=== PATIENT | male | born 1965 | race Caucasian/White ===

== ENCOUNTER → 2017-07-08 12:50 | Outpatient (CLI) | payer BC, SELFPAY ==
[2017-07-08 14:05] LABS: Hemoglobin A1C 9.1 % (0.0-7.0)
[2017-07-08 16:08] LABS: Alanine Aminotransferase 40 U/L (12-78); Albumin Level 3.6 gm/dL (3.4-5.0); Albumin/Globulin Ratio 0.8 (1.1-1.8); Alkaline Phosphatase 90 U/L (46-116); Anion Gap 11.3 mEq/L (5-15); Bilirubin,Total 0.6 mg/dL (0.2-1.0); Blood Urea Nitrogen 20 mg/dL (7-18); Calcium 9.7 mg/dL (8.5-10.1); Carbon Dioxide 35 mmol/L (21.0-32.0); Chloride 99 mmol/L (98-107); Chol/HDL Ratio 4.9 (1-3.5); Cholesterol 215 mg/dL (140-200); Creatinine,Serum 0.67 mg/dL (0.70-1.30); Estimated Glomerular Filt Rate 125 ml/min (>60); GFR (African American) 151 ML/MIN (>60); Globulin 4.8 gm/dl (1.3-3.2); Glucose 153 mg/dL (74-106); HDL Cholesterol 44 mg/dL (27-67); LDL Cholesterol 145 mg/dL (0-130); Sodium 142 mmol/L (136-145); Total Protein,Serum 8.4 gm/dL (6.4-8.2); Triglycerides 129 mg/dL (30-200); VLDL Cholesterol 26 mg/dL (0-40)
[2017-07-08 16:23] LABS: Aspartate Amino Transferase 24 U/L (15-37); Potassium 3.3 mmoL/L (3.5-5.1)
== END ==
PROVIDERS: Visit Provider Internal Medicine Adolescent Medicine
DX: E78.5 Hyperlipidemia, unspecified (principal); E11.9 Type 2 diabetes mellitus without complications
CPT/HCPCS: 36415; 80053; 80061; 83036

== ENCOUNTER → 2018-04-13 13:50 | Outpatient (CLI) | payer BC, SELFPAY | PROVIDERS: PCP Internal Medicine Adolescent Medicine; Visit Provider Internal Medicine Adolescent Medicine | DX: Z71.3 Dietary counseling and surveillance (principal); E11.9 Type 2 diabetes mellitus without complications | CPT/HCPCS: 97802 ==

== ENCOUNTER → 2018-11-10 15:30 | Outpatient (CLI) | payer BC, SELFPAY ==
[2018-11-10 16:42] LABS: Hemoglobin A1C 9.1 % (0.0-7.0)
[2018-11-10 17:17] LABS: Alanine Aminotransferase 48 U/L (12-78); Albumin Level 3.5 gm/dL (3.4-5.0); Albumin/Globulin Ratio 0.8 (1.1-1.8); Alkaline Phosphatase 89 U/L (46-116); Anion Gap 11.5 mEq/L (5-15); Aspartate Amino Transferase 26 U/L (15-37); Bilirubin,Total 0.6 mg/dL (0.2-1.0); Blood Urea Nitrogen 21 mg/dL (7-18); Calcium 9.3 mg/dL (8.5-10.1); Carbon Dioxide 30 mmol/L (21.0-32.0); Chloride 97 mmol/L (98-107); Chol/HDL Ratio 3.6 (1-3.5); Cholesterol 142 mg/dL (140-200); Creatinine,Serum 0.75 mg/dL (0.70-1.30); Estimated Glomerular Filt Rate 109 ml/min (>60); GFR (African American) 132 ML/MIN (>60); Globulin 4.5 gm/dl (1.3-3.2); Glucose 170 mg/dL (74-106); HDL Cholesterol 40 mg/dL (27-67); LDL Cholesterol 83 mg/dL (0-130); Potassium 4.5 mmoL/L (3.5-5.1); Sodium 134 mmol/L (136-145); Triglycerides 94 mg/dL (30-200); VLDL Cholesterol 19 mg/dL (0-40)
== END ==
PROVIDERS: Visit Provider Internal Medicine Adolescent Medicine
DX: E11.9 Type 2 diabetes mellitus without complications (principal)
CPT/HCPCS: 36415; 80053; 80061; 83036

== ENCOUNTER → 2019-08-17 13:37 | Outpatient (CLI) | payer BC, SELFPAY ==
[2019-08-17 14:41] LABS: Hemoglobin A1C 10.3 % (4.0-6.0)
[2019-08-17 15:19] LABS: Chloride 95 mmol/L (98-107); Potassium 4.5 mmoL/L (3.5-5.1); Sodium 133 mmol/L (136-145)
[2019-08-17 15:21] LABS: Blood Urea Nitrogen 15 mg/dl (9-20); Estimated Glomerular Filt Rate 118 ml/min (>60); GFR (African American) 143 ML/MIN (>60)
[2019-08-17 15:22] LABS: Alanine Aminotransferase 39 U/L (12-78); Albumin Level 3.9 g/dl (3.5-5.0); Albumin/Globulin Ratio 1.1 (1.1-1.8); Alkaline Phosphatase 121 U/L (38-126); Anion Gap 9.5 mEq/L (5-15); Aspartate Amino Transferase 27 U/L (17-59); Bilirubin,Total 0.7 mg/dl (0.2-1.3); Calcium 9.3 mg/dl (8.4-10.2); Carbon Dioxide 33 mmol/L (22.0-30.0); Chol/HDL Ratio 3.8 (1-3.5); Cholesterol 130 mg/dl (140-200); Globulin 3.7 g/dL (1.3-3.2); Glucose 235 mg/dl (74-100); HDL Cholesterol 34 mg/dl (40-60); Total Protein,Serum 7.6 g/dl (6.3-8.2); Triglycerides 167 mg/dl (30-150); VLDL Cholesterol 33 mg/dL (0-40)
[2019-08-17 15:33] LABS: Direct LDL Cholesterol 80.08 mg/dL (100-129)
== END ==
PROVIDERS: Visit Provider Internal Medicine Adolescent Medicine
DX: E78.5 Hyperlipidemia, unspecified (principal); E11.9 Type 2 diabetes mellitus without complications
CPT/HCPCS: 36415; 80053; 80061; 83036

== ENCOUNTER → 2020-04-18 13:19 | Outpatient (CLI) | payer BC, SELFPAY ==
[2020-04-18 14:31] LABS: Hemoglobin A1C 10.5 % (4.0-6.0)
[2020-04-18 15:09] LABS: Alanine Aminotransferase 41 U/L (12-78); Albumin Level 4.3 g/dl (3.5-5.0); Albumin/Globulin Ratio 1.1 (1.1-1.8); Alkaline Phosphatase 109 U/L (38-126); Anion Gap 16.2 mEq/L (5-15); Aspartate Amino Transferase 31 U/L (17-59); Bilirubin,Total 0.8 mg/dl (0.2-1.3); Blood Urea Nitrogen 17 mg/dl (9-20); Calcium 9.8 mg/dl (8.4-10.2); Carbon Dioxide 28 mmol/L (22.0-30.0); Chloride 94 mmol/L (98-107); Chol/HDL Ratio 3.9 (1-3.5); Cholesterol 147 mg/dl (140-200); Estimated Glomerular Filt Rate 141 ml/min (>60); GFR (African American) 171 ML/MIN (>60); Glucose 287 mg/dl (74-100); HDL Cholesterol 38 mg/dl (40-60); Potassium 4.2 mmoL/L (3.5-5.1); Sodium 134 mmol/L (136-145); Total Protein,Serum 8.3 g/dl (6.3-8.2); Triglycerides 200 mg/dl (30-150); VLDL Cholesterol 40 mg/dL (0-40)
[2020-04-18 15:20] LABS: Direct LDL Cholesterol 74.46 mg/dL (100-129)
== END ==
PROVIDERS: Visit Provider Internal Medicine Adolescent Medicine
DX: E78.5 Hyperlipidemia, unspecified (principal); E11.9 Type 2 diabetes mellitus without complications
CPT/HCPCS: 36415; 80053; 80061; 83036

== ENCOUNTER → 2020-11-14 15:59 | Outpatient (CLI) | payer BC, SELFPAY ==
[2020-11-14 17:42] LABS: Chloride 96 mmol/L (98-107); Potassium 4.3 mmoL/L (3.5-5.1); Sodium 138 mmol/L (136-145)
[2020-11-14 17:44] LABS: Alanine Aminotransferase 29 U/L (12-78); Alkaline Phosphatase 95 U/L (38-126); Aspartate Amino Transferase 25 U/L (17-59); Bilirubin,Total 0.5 mg/dl (0.2-1.3); Blood Urea Nitrogen 17 mg/dl (9-20); Estimated Glomerular Filt Rate 118 ml/min (>60); GFR (African American) 142 ML/MIN (>60)
[2020-11-14 17:45] LABS: Albumin Level 3.8 g/dl (3.5-5.0); Anion Gap 14.3 mEq/L (5-15); Calcium 9.6 mg/dl (8.4-10.2); Carbon Dioxide 32 mmol/L (22.0-30.0); Chol/HDL Ratio 3.7 (1-3.5); Cholesterol 131 mg/dl (140-200); Globulin 3.9 g/dL (1.3-3.2); Glucose 123 mg/dl (74-100); HDL Cholesterol 35 mg/dl (40-60); Total Protein,Serum 7.7 g/dl (6.3-8.2); Triglycerides 107 mg/dl (30-150); VLDL Cholesterol 21 mg/dL (0-40)
[2020-11-14 17:56] LABS: Direct LDL Cholesterol 73.82 mg/dL (100-129)
[2020-11-14 18:24] LABS: Hemoglobin A1C 9.2 % (4.0-6.0)
== END ==
PROVIDERS: Visit Provider Internal Medicine Adolescent Medicine
DX: E11.9 Type 2 diabetes mellitus without complications (principal); E78.5 Hyperlipidemia, unspecified
CPT/HCPCS: 36415; 80053; 80061; 83036